=== PATIENT | male | born 2000 | race Caucasian/White ===

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

== ENCOUNTER 2025-07-21 13:44 | Emergency (ER) | payer MEDICAID, OTHER ==
[~2025-07-21] VITALS: Ht 180.3 cm; Wt 80.5 kg
[2025-07-21] MEDS ORDERED: CETI10TA77 PO (14:10)
[2025-07-21] MEDS ORDERED: IBUP-45 PO (14:10)
[2025-07-21] MEDS ORDERED: MELA5TAB40 PO (14:10)
[2025-07-21 14:14] VITALS: TEMP 98.2
[2025-07-21 14:18] LABS: COVID AG,FIA SOURCE NASAL SWAB
[2025-07-21] MEDS: KETOROLAC TROMETHAMINE 30 MG/ML VIAL IM ONE (14:18)
[2025-07-21 14:32] LABS: INFLUENZA TYPE A NEGATIVE FOR TYPE A (NEGATIVE); INFLUENZA TYPE B NEGATIVE FOR TYPE B (NEGATIVE); SARS-COV2 (COVID) ANTIGEN,FIA Negative (Negative)
[2025-07-21 14:36] LABS: PLATELET COUNT (AUTO) 242 K/uL (150-450); RED BLOOD CELL COUNT(AUTO) 5.19 MIL/uL (4.50-5.90); RED CELL DISTRIBUTION WIDTH 13.5 % (11.5-14.5); WHITE BLOOD COUNT (AUTO) 7.6 K/uL (4.5-11.0)
[2025-07-21 14:45] LABS: CALCIUM, TOTAL 8.8 mg/dL (8.8-10.5); CREATININE 0.79 mg/dL (0.60-1.30); GLOMERULAR FILTR. RATE CALC > 60 mL/min (>60); GLUCOSE,RANDOM 89 mg/dL (70-110); SODIUM SERUM 139 mmol/L (136-145); UREA NITROGEN, BLOOD 14 mg/dL (7-18)
[2025-07-21 14:49] LABS: ASPARTATE AMINOTRANSFERASE 23 U/L (15-37); TOTAL PROTEIN, SERUM 7.5 g/dL (6.4-8.2)
[2025-07-21 15:05] LABS: TROPONIN I-HIGH SENSITIVITY 4 ng/L (<76)
[2025-07-21] MEDS: ACETAMINOPHEN 500 MG TABLET PO ONE (15:52)
[2025-07-21 17:42] VITALS: BP 122/68; PULSE 60; RESP 18; O2SAT 99
== END 2025-07-21 20:31 | disposition home or self-care (01) ==
LOC: EMS 13:44
DX: R07.89 Other chest pain (principal); Z20.822 Contact with and (suspected) exposure to COVID-19
CPT/HCPCS: 99285; 87426; 80053; 84484; 85025; 85379; 87804; 36415; 71101; 93005; 96372; J1885